=== PATIENT | female | born 1995 | race Caucasian/White ===

== ENCOUNTER 2016-09-22 11:38 | Emergency (ER) | payer OTHER ==
[~2016-09-22] VITALS: Ht 170.2 cm; Wt 75.0 kg
[~2016-09-22 11:38] MED LIST: CYCL10TA6 PO; GABA-113 PO; IBUP-1428 PO; PANT40TA PO
[2016-09-22 11:41] VITALS: TEMP 37.3; Ht 170.2 cm; Wt 75.0 kg
[2016-09-22] MEDS ORDERED: DEXAMETHASONE SOD INJ 10 MG/ML VIAL IV ONE (12:30)
[2016-09-22] MEDS ORDERED: KETOROLAC TROMETHAMINE 30 MG/ML VIAL IV STA (12:30)
[2016-09-22] MEDS ORDERED: SODIUM CHLORIDE 0.9% 1000ML 1,000 ML IV STA (12:30)
[2016-09-22] MEDS ORDERED: ONDANSETRON INJ 2 MG/ML 2 ML VIAL IV STA (12:30)
[2016-09-22 13:01] LABS: BASO % 0.4 %; BASO ABS # 0.04 K/uL (0-0.2); COMPLETE YES; EOS % 1.1 %; HEMATOCRIT 39.9 % (37-47); IG% 0.1 %; LYMPH % 27.7 %; LYMPH ABS # 2.48 K/uL (1.2-3.4); MEAN CELL VOLUME 89.5 fL (80-100); MEAN CORPUSCULAR HEMOGLOBIN 30.7 pg (25-34); MEAN CORPUSCULAR HGB CONC 34.3 g/dl (32-36); MEAN PLATELET VOLUME 9.2 fL (7.4-10.4); MONO % 8.4 %; NEUT % 62.3 %; PLATELET COUNT 301 K/uL (130-400); RED BLOOD COUNT 4.46 M/uL (4.2-5.4); WHITE BLOOD COUNT 8.94 K/uL (4.8-10.8)
[2016-09-22 13:17] LABS: BUN/CREATININE RATIO 14.7 (10-20); CALCIUM 9.2 mg/dl (8.5-10.1); CREATININE 0.83 mg/dl (0.60-1.20); POTASSIUM 3.8 mmol/L (3.5-5.1)
--- NOTE | 2016-09-22 13:24 | DIAGNOSTIC IMAGING REPORT ---
CT SCAN OF THE BRAIN WITHOUT IV CONTRAST CLINICAL HISTORY: Headache. COMPARISON STUDY: No priors. TECHNIQUE: Unenhanced axial CT scan of the brain is performed from the vertex to the skull base. Automated dose control exposure was utilized. CT DOSE: 537.48 mGy.cm FINDINGS: Brain parenchyma: The brain parenchyma is normal in appearance. There is no hemorrhage, mass effect, or evidence of acute territorial ischemia by CT criteria. Wise-white matter is preserved. No extra-axial fluid collection is seen. Ventricles, sulci, cisterns: Normal in configuration. Intracranial vasculature: The visualized intracranial vasculature at the skull base is normal in appearance. Calvarium: Unremarkable. Sinuses and mastoids: The visualized paranasal sinuses are clear. The mastoid air cells are well pneumatized. Orbits: The bony orbits are grossly intact. IMPRESSION: No acute intracranial abnormality. Electronically signed by: Nikhil Roman M.D. 09/22/2016 1:22 PM Dictated Date/Time: 09/22/2016 1:20 PM
[2016-09-22 13:28] LABS: THYROID STIMULATING HORMONE 1.06 uIu/ml (0.300-4.500)
[2016-09-22] MEDS ORDERED: PRED50TA PO (14:31)
[2016-09-22] MEDS ORDERED: METR0.7510 PV (14:31)
[2016-09-22] MEDS ORDERED: HYDR-5688 PO (14:31)
--- NOTE | 2016-09-22 14:33 | EMERGENCY ROOM VISIT NOTE ---
ED Visit Note First contact with patient: 11:54 CHIEF COMPLAINT: Intermittent headache 3 weeks HISTORY OF PRESENT ILLNESS: Patient is a 21-year-old white female who presents emergency department for evaluation of an intermittent headache that she describes as a "migraine". She's had them on and off for the last 2-3 weeks. She describes a throbbing, pulsating frontal headache that radiates to the bitemporal region. She has slight associated nausea, but otherwise denies any lightheadedness, dizziness, vision changes, vomiting. She has tried multiple gkml-nbk-yzoogeo medications including Excedrin, Tylenol and ibuprofen. She is tried resting and applying pressure to the area. She does not have a history of migraines or headache disorder. She has not been ill recently with any cold , upper respiratory symptoms or fevers. She denies weakness or numbness of the extremities. There is no difficulty with balance, coordination, speech or vision. No trauma to the head and no neck pain. She does report that she is under a increased stress recently due to personal issues and an illness in the family. She does also report that she has been a little bit "worked up" recently she had unprotected sex 5 days ago and is concerned she could have a sexually transmitted infection. She notes vaginal itching and foul-smelling discharge. Denies vaginal bleeding or urinary symptoms. She reports that she has an appointment to see a psychiatrist with the [facility] in [place] at the end of this month. She is presently seeing a therapist only for her mental health issues. REVIEW OF SYSTEMS: Review of systems as per HPI. All other systems reviewed were negative. 10 systems reviewed. PMH: Electronic medical records are reviewed and summarized as above/below. See Problem List. SOCIAL HISTORY: Patient lives in an apartment by herself. She is employed. Nonsmoker, alcohol socially. PHYSICAL EXAM: Vital Signs: Reviewed Nurse's notes. General Appearance: Patient is well appearing, in no acute distress Eyes: Pupils equal round reactive to light extraocular muscles are intact, no proptosis, no photophobia ENT: Oropharynx is clear, mucous membranes are moist, tympanic membranes are clear bilaterally, no sinus or dental tenderness Neck: Supple, no cervical lymphadenopathy, no meningismus Heart: Regular rate and rhythm, S1 and S2 Lungs: Clear to auscultation bilaterally, no wheezes Rales or rhonchi, no increased work of breathing Abdomen: Soft nontender nondistended. Normal active bowel sounds. No rebound. No guarding. Pelvic Exam: Genitalia are normal Vagina is clean, thin, white physiologic discharge noted Cervix is without lesions Back: No midline tenderness to palpation. : No CVA tenderness to palpation. Skin: Warm, no diaphoresis, no rashes. Extremities: No cyanosis, clubbing, or edema Neurologic: Patient is awake alert, and oriented x 3. Cranial nerves 2-12 are grossly intact. Motor 5 out of 5 strength bilateral upper extremities and lower extremities. No gross sensory deficits. Reflexes are 2+ throughout. Normal gait. Negative Romberg and pronator chest. Finger to nose testing is within normal limits. Rapid alternating movements are intact. Mini-Mental status exam is unremarkable. EMERGENCY DEPARTMENT COURSE: The patient was seen and evaluated as above. She presents the emergency department for evaluation of a fairly persistent headache over the last 3 weeks. She does attribute this to increased stress and anxiety. Nonetheless, given the persistent symptoms I did perform a head CT , which was negative for acute intracranial bleed. Her laboratory studies did not demonstrate any leukocytosis, anemia, electrolyte or liver function abnormalities. Her TSH indicates a euthyroid state. Urine dip noted 2+ leukocytes, no other indicators for infection. Urine test was negative. Patient reports that she had unprotected sexual intercourse about 5 days ago. She took Plan B afterwards. She has noted some foul-smelling discharge and slight vaginal burning since. She did consent to a pelvic exam to obtain swabs for testing. Trichomonas was negative. Chlamydia and gonorrhea are pending. She did have some clue cells noted on Gram stain and therefore will be covered for bacterial vaginosis. If she would like to pursue further HIV or hepatitis B /C testing she was directed to follow-up with her primary care provider/[facility] or the [facility] for further care and management. The patient had driven herself to the emergency department and wanted to be able to drive home. She was therefore hydrated with normal saline solution and given Zofran 4 mg Toradol 30 mg and Decadron 10 mg IV for her headache. She was reassessed, and reported that her headache had improved. I did review all of her laboratory and diagnostic imaging with her, and discussed treatment plan. I did recommend a short course of oral prednisone to break the headache. She was also given a small prescription for hydrocodone for breakthrough pain. Regarding the bacterial vaginosis she will be placed on MetroGel vaginally. She has never had a pelvic exam or Pap smear by a lecturer in computer science and she was encouraged to schedule this for her routine health maintenance. Should her headaches worsen, she should gently return to the emergency department for further care and management, otherwise was advised to follow-up with her primary care provider if they persist and she may require a further workup. She expressed understanding of this and was agreeable. The patient rated her headache discomfort a 2/10 at discharge. Differential includes: acute intracranial bleed, meningitis, encephalitis, mass or mass effect, sinusitis, infection, migraine, tumor, headache, temporal arteritis, stress, anxiety disorder, depressive disorder, among others. CT SCAN OF THE BRAIN WITHOUT IV CONTRAST CLINICAL HISTORY: Headache. COMPARISON STUDY: No priors. TECHNIQUE: Unenhanced axial CT scan of the brain is performed from the vertex to the skull base. Automated dose control exposure was utilized. CT DOSE: 537.48 mGy.cm FINDINGS: Brain parenchyma: The brain parenchyma is normal in appearance. There is no hemorrhage, mass effect, or evidence of acute territorial ischemia by CT criteria. Wise-white matter is preserved. No extra-axial fluid collection is seen. Ventricles, sulci, cisterns: Normal in configuration. Intracranial vasculature: The visualized intracranial vasculature at the skull base is normal in appearance. Calvarium: Unremarkable. Sinuses and mastoids: The visualized paranasal sinuses are clear. The mastoid air cells are well pneumatized. Orbits: The bony orbits are grossly intact. IMPRESSION: No acute intracranial abnormality. Problem List Medical Problems: (1) Anxiety Status: Chronic (2) Cough Status: Resolved (3) Depression Status: Chronic (4) GERD (gastroesophageal reflux disease) Status: Chronic (5) History of bronchitis Status: Resolved (6) Injury of left foot Status: Resolved (7) Lumbago Status: Chronic (8) Lumbar degenerative disc disease Status: Chronic (9) Post-tussive emesis Status: Resolved (10) Post-viral cough syndrome Status: Resolved (11) Spinal stenosis of lumbar region Status: Chronic Current/Historical Medications Scheduled Gabapentin (Neurontin), 600 MG PO TID Metronidazole Vaginal (Metrogel Vag Gel), 1 APPL PV HS Pantoprazole (Protonix), 40 MG PO DAILY Prednisone (Prednisone), 50 MG PO DAILY Scheduled PRN Cyclobenzaprine Hcl (Flexeril), 1 TAB PO HS PRN for Muscle Spasms Hydrocodone/Acetaminophen 5MG/325MG (Rhame 5MG/325MG), 1 TABLET PO Q4 PRN for Pain Ibuprofen (Motrin), 800 MG PO DAILY PRN for Pain Allergies Uncoded Allergies: SULFA (Allergy, Mild, Rash, 08/12/16) Vital Signs Date Time Temp Pulse Resp B/P Pulse Ox O2 Delivery O2 Flow Rate FiO2 09/22/16 14:43 72 16 117/72 99 09/22/16 13:35 76 16 104/70 100 Room Air 09/22/16 11:41 37.3 83 18 123/81 100 Room Air Laboratory Results 09/22/16 12:51 Red Blood Count 4.46, Mean Corpuscular Volume 89.5, Mean Corpuscular Hemoglobin 30.7, Mean Corpuscular Hemoglobin Concent 34.3, Mean Platelet Volume 9.2, Neutrophils (%) (Auto) 62.3, Lymphocytes (%) (Auto) 27.7, Monocytes (%) (Auto) 8.4, Eosinophils (%) (Auto) 1.1, Basophils (%) (Auto) 0.4, Neutrophils # (Auto) 5.56, Lymphocytes # (Auto) 2.48, Monocytes # (Auto) 0.75, Eosinophils # (Auto) 0.10, Basophils # (Auto) 0.04 09/22/16 12:51 Test 09/22/16 12:40 09/22/16 12:51 Urine Test NEG (NEG) White Blood Count 8.94 K/uL (4.8-10.8) Red Blood Count 4.46 M/uL (4.2-5.4) Hemoglobin 13.7 g/dL (12.0-16.0) Hematocrit 39.9 % (37-47) Mean Corpuscular Volume 89.5 fL (80-100) Mean Corpuscular Hemoglobin 30.7 pg (25-34) Mean Corpuscular Hemoglobin Concent 34.3 g/dl (32-36) Platelet Count 301 K/uL (130-400) Mean Platelet Volume 9.2 fL (7.4-10.4) Neutrophils (%) (Auto) 62.3 % Lymphocytes (%) (Auto) 27.7 % Monocytes (%) (Auto) 8.4 % Eosinophils (%) (Auto) 1.1 % Basophils (%) (Auto) 0.4 % Neutrophils # (Auto) 5.56 K/uL (1.4-6.5) Lymphocytes # (Auto) 2.48 K/uL (1.2-3.4) Monocytes # (Auto) 0.75 K/uL (0.11-0.59) Eosinophils # (Auto) 0.10 K/uL (0-0.5) Basophils # (Auto) 0.04 K/uL (0-0.2) RDW Standard Deviation 41.3 fL (36.4-46.3) RDW Coefficient of Variation 12.7 % (11.5-14.5) Immature Granulocyte % (Auto) 0.1 % Immature Granulocyte # (Auto) 0.01 K/uL (0.00-0.02) Anion Gap 10.0 mmol/L (3-11) Est Creatinine Clear Calc Drug Dose 113.4 ml/min Estimated GFR () 116.8 Estimated GFR (Non- 100.8 BUN/Creatinine Ratio 14.7 (10-20) Calcium Level 9.2 mg/dl (8.5-10.1) Total Bilirubin 0.5 mg/dl (0.2-1) Aspartate Amino Transf (AST/SGOT) 9 U/L (15-37) Alanine Aminotransferase (ALT/SGPT) 15 U/L (12-78) Alkaline Phosphatase 68 U/L (45-117) Total Protein 7.9 gm/dl (6.4-8.2) Albumin 4.0 gm/dl (3.4-5.0) Globulin 3.9 gm/dl (2.5-4.0) Albumin/Globulin Ratio 1.0 (0.9-2) Thyroid Stimulating Hormone (TSH) 1.060 uIu/ml (0.300-4.500) Date/Time Source Procedure Growth Status 09/22/16 12:40 Vaginal Swab Trichomonas Preparation - Final Complete Medications Administered Medications (Trade) Dose Ordered Sig/Ramiro Route Start Time Stop Time Status Last Admin Dose Admin Sodium Chloride (Nss 1000ml) 1,000 ml @ 999 mls/hr Q1H1M STAT IV 09/22/16 12:30 09/22/16 13:30 DC 09/22/16 12:55 999 MLS/HR Ketorolac Tromethamine (Toradol Inj) 30 mg NOW STAT IV 09/22/16 12:30 09/22/16 12:33 DC 09/22/16 12:56 30 MG Ondansetron HCl (Zofran Inj) 4 mg NOW STAT IV 09/22/16 12:30 09/22/16 12:33 DC 09/22/16 12:55 4 MG Dexamethasone Sodium Phosphate (Decadron Inj) 10 mg NOW ONCE IV 09/22/16 12:30 09/22/16 12:33 DC 09/22/16 12:55 10 MG Departure Information Impression Primary Impression: Headache Additional Impression: Bacterial vaginosis Prescriptions Hydrocodone/Acetaminophen 5MG/325MG (Rhame 5MG/325MG) Tab 1 TABLET PO Q4 Y for Pain, #10 TAB For Initial Treatment Prov: Estee Barksdale PA 09/22/16 Prednisone (Prednisone) 50 Mg Tab 50 MG PO DAILY for 5 Days, #5 TAB Prov: Estee Barksdale PA 09/22/16 Metronidazole Vaginal (METROGEL VAG GEL) 0.75 % Gel 1 APPL PV HS for 5 Days, #70 GM Prov: Estee Barksdale PA 09/22/16 Referrals No Doctor, Assigned (PCP) Patient Instructions My [facility] Additional Instructions Prednisone 50mg: Once daily until the prescription is finished. It is best to take this earlier in the day as some patients note occasional difficulty falling asleep when taken in the late evening. Hydrocodone/Acetaminophen (Rhame) 5/325 mg: Take 1-2 pills every four hours for breakthrough pain. Avoid alcohol, operating machinery or dangerous equipment, working on ladders or roofs, DRIVING, or situations where being under the influence may be dangerous. It is recommended to use an ksoo-gtl-auxgydy stool softener such as Colace, 100mg twice daily while taking this medication to avoid constipation. Rest today in a quiet, peaceful, dark environment and get a full 8-10 hrs of sleep tonight. Avoid loud noises, smoke/smoking, alcohol, bright lights, stress, or physical exertion today to minimize the chance the headache may return. Continue current medications. Ibuprofen(Motrin, Advil) may be used for fever or pain. Use 600mg every six hours as needed. Take with food. Avoid using more than 2400mg in a 24 hour period. Do not use 2400mg per day for more than three consecutive days without physician direction. Prolonged inappropriate use can lead to stomach upset or ulcers. (AND/OR) Acetaminophen(Tylenol) may be used for fever or pain. Use 1000mg every six hours as needed. Avoid using more than 3000mg in a 24 hour period. Return to the ER for passing out, worsening headache, vision problems, neck stiffness/pain, fevers, vomiting, worsening of your condition, or as needed. Follow up with your primary physician in 2-3 days for a recheck of your current condition. For Bacterial Vaginosis: MetroGel: One suppository intravaginally at bedtime 5 days. Follow up with [facility] for further care. Problem Qualifiers Primary Impression: Headache Headache type: unspecified Headache chronicity pattern: acute headache Intractability: not intractable Qualified Codes: R51 - Headache
[2016-09-22 14:43] VITALS: BP 117/72; PULSE 72; O2SAT 99
--- NOTE | 2016-09-25 11:59 | Pharmacy Progress Note ---
ED Pharmacist Culture FollowUp Date of Service: Sep 25, 2016. Patient's gential culture returned growing gardnerella vaginalis; gram stain also had clue cells. Patient had c/o foul smelling discharge and vaginal itching. She was dx with bacterial vaginosis in the ED and discharged w/ Rx for Metrogel 0.75% 1 application Q HS x 5 days. No action required.
[2016-09-28 16:02] LABS: CHLAMYDIA TRACH RNA*** NOT DETECTED (NOT DETECTED); GC (NEIS GONORRHOEAE)RNA** NOT DETECTED (NOT DETECTED)
== END 2016-09-22 14:44 | disposition home or self-care (01) ==
LOC: C.EDB 11:39 → C.EDC 14:44
DX: R51 Headache (principal); N76.0 Acute vaginitis; A49.9 Bacterial infection, unspecified; F41.9 Anxiety disorder, unspecified; K21.9 Gastro-esophageal reflux disease without esophagitis; F32.9 Major depressive disorder, single episode, unspecified; M48.06 Spinal stenosis, lumbar region; Z79.899 Other long term (current) drug therapy; Z88.2 Allergy status to sulfonamides